=== PATIENT | male | born 1980 | race African-American/Black ===

== ENCOUNTER 2023-10-17 09:48 | Outpatient (AMB) | payer OTHER, SELFPAY ==
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
[2023-10-17 09:50] VITALS: BP 138/86; PULSE 87; O2SAT 97; BMI 42.6
== END 2023-10-17 10:15 | disposition home or self-care (01) ==
PROVIDERS: PCP Physician Assistant Medical; Visit Provider Nurse Practitioner Family
DX: M54.50 Low back pain, unspecified (principal); M54.16 Radiculopathy, lumbar region; M47.817 Spondylosis without myelopathy or radiculopathy, lumbosacral region; M62.830 Muscle spasm of back; E66.01 Morbid (severe) obesity due to excess calories; Z68.41 Body mass index [BMI] 40.0-44.9, adult
CPT/HCPCS: 99204

== ENCOUNTER → 2023-10-17 09:48 | Outpatient (BNVA) | payer OTHER, SELFPAY | PROVIDERS: PCP Physician Assistant Medical; Visit Provider Nurse Practitioner Family ==